=== PATIENT | female | born 1980 | race Caucasian/White ===

== ENCOUNTER → 2018-05-14 | Day surgery (SDC) | payer OTHER ==
[~2018-05-14] VITALS: Ht 162.6 cm; Wt 108.9 kg
[~2018-05-14] MED LIST: PERCOCET 5-3251 EACH PO
--- NOTE | 2018-05-14 08:40 | Proc Note Endoscopy ---
Endoscopy Procedure Medical History: unchanged Procedure Date: 05/14/18 Procedure Type: EGD w/biopsy Hotel Associate: Deniz Weber ASA Classification: III Indications: GERD, Preop Bariatric Surgery Instrument: diagnostic gastroscope Patient's Tolerance: good Complications: none Extent Reached: second part of duodenum Procedure: The patient was on the operating room table undergoing lap scopic cholecystectomy as per Delfin Rowe MD. Planned diagnostic endoscopy to be done at the same time. The endoscope was inserted into the mouth down into the posterior pharynx and into the esophagus under direct visualization. The entire length of the esophagus appeared normal up to the GE junction. Z line was noted and appeared normal. GE junction was at approximately 38 cm from the incisors. The stomach was entered and the endoscope was advanced into the duodenum, which appeared normal. Scope was then withdrawn and some erythema was noted around the antrum so a forcep biopsy was taken. Retroflexion was performed in the hiatus/cardia appeared normal. Then the scope was then withdrawn under direct visualization suctioning the air out on the way. Findings: Mild gastritis, otherwise normal upper endoscopy Impression: As above CC: Soledad KNOTT,Delfin Ryan
--- NOTE | 2018-05-14 08:56 | Operative Report ---
Operative/Inv Procedure Report Surgery Date: 05/14/18 Name of Procedure: Laparoscopic cholecystectomy Pre-Operative Diagnosis: cholelithiasis Post-Operative Diagnosis: same Estimated Blood Loss: less than 50ml Surgeon/Director Process Improvement: Soledad KNOTT,Delfin Bonilla PAC Anesthesia: general endotracheal tube IV Fluids: LR Urine Output: not measured Drains: none Specimens: gallbladder, egd bx stomach Complications: none Condition: stable Operative Indication: see admission H and P Operative/Procedure Note Note: After informed consent and proper identification patient was taken to the operating room placed on the operating table in the supine position. Venodyne stockings were applied. The patient underwent a general endotracheal anesthetic that a tap block by anesthesia. The abdomen was prepped and draped in normal sterile fashion. Using a 15 blade an infraumbilical incision was made through the skin and subcutaneous tissue down the fascia the fascia was elevated between 2-0 Vicryl sutures and opened transversely with electrocautery to enter the abdominal cavity with a blunt port cannula and insufflated with 14 mm CO2 pressure. We had excellent visualization. We placed additional trochars 5 mm trocar in the subxiphoid region and 2 5 mm trochars in the right subcostal margin we grasped the fundus of the gallbladder and pushed it up over the liver edge in doing so the liver junction with the falciform ligament towards slightly and there was some bleeding but it stopped spontaneously there is less than 20 cc of blood loss. Later the end of the case we placed a small piece of Surgicel over this area. The fundus of the gallbladder was elevated the infundibulum was pulled laterally that was scored with electrocautery and pulled off the infundibulum down to the cystic duct and cystic artery which were clearly visualized and surrounded the duct and artery with a [place] dissector and then placed 2 clips proximally and 2 distally and divided the duct and artery we dissected the gallbladder out of the liver bed with the hook cautery resection irrigated the bed we made sure there is no active bleeding once her gallbladder was completely detached we sucked out all the blood seeping from the right upper quadrant with placed the gallbladder in a 10 Endo Catch bag and using a 5 mm laparoscope we pulled the gallbladder out the infraumbilical incision. Note the patient remained on the table and underwent an EGD with biopsy by Dr. Deniz Alvarado in preparation for her sleeve gastrectomy to be scheduled at a later date. Please see the pathology report for the EGD biopsy and gallbladder. We closed the infraumbilical incision with 0 Vicryl suture to close the skin incisions with 4-0 Monocryl subcuticular stitches and glue. The patient tolerated the procedure without complications was extubated and taken the recovery room in stable condition Findings: chronic wall thickening and large gallstones approx 3 2cm stones Discharge Disposition: PACU
== END ==
LOC: STS 01:36
DX: K80.10 Calculus of gallbladder with chronic cholecystitis without obstruction (principal); K29.50 Unspecified chronic gastritis without bleeding; B96.81 Helicobacter pylori [H. pylori] as the cause of diseases classified elsewhere; K21.9 Gastro-esophageal reflux disease without esophagitis; E66.01 Morbid (severe) obesity due to excess calories; Z68.35 Body mass index [BMI] 35.0-35.9, adult
CPT/HCPCS: 81025; J0131; J0690; J2250; J3490